=== PATIENT | female | born 1980 | race Caucasian/White ===

== ENCOUNTER 2023-06-06 08:54 | Emergency (ER) | payer BC, SELFPAY ==
--- NOTE | 2023-06-06 08:55 | ED.URI ---
HPI - URI/Sore Throat General Chief Complaint: Upper Respiratory Infection Stated Complaint: Sore Throat Time Seen by Provider: 06/06/23 08:54 Source: patient Mode of arrival: ambulatory Limitations: no limitations History of Present Illness HPI Narrative: Natalee is a 42-year-old female patient presenting to the clinic today with complaints of a sore throat, cough, and nasal congestion times 4-5 days. She reports no known fever or chills. MD elicited complaint: sore throat and nasal congestion Related Data Home Medications Medication Instructions Recorded Confirmed clobetasol 0.05 % scalp solution 1 applic topical DIRECTED 06/06/23 06/06/23 Allergies Allergy/AdvReac Type Severity Reaction Status Date / Time No Known Allergies Allergy Unverified 06/06/23 08:57 Review of Systems Review of Systems: Pertinent positives per HPI. Patient denies any fever, chills, rash, headache, visual changes, dizziness, shortness of breath, chest pain, palpitations, nausea, vomiting, diarrhea, constipation, abdominal pain, or any urinary issues. PMFSH Comments At the time of my signature, I reviewed and agree with the nursing past medical, surgical, social, and family history. There is no relevant family history pertinent to the patient complaint. Exam Narrative: General: Well-developed, well nourished, in no apparent distress Head: Normocephalic, atraumatic Eyes: Pupils equally round and reactive to light bilaterally, EOM intact, sclera and conjunctive clear, no discharge, lids normal Ears: TMs intact and clear, ear canals clear, no drainage, grossly hearing normal. Nose: Nares patent, clear nasal discharge, no inflammation, no sinus tenderness. Mouth: Oral pharynx red without lesions or masses, good dentition, MMM. Postnasal drip Neck: Supple, trachea midline, no enlargement of anterior or posterior cervical nodes, no thyroid masses or goiter palpable. Cardio: Regular rate and rhythm, s1 and s2 normal, no murmur appreciated. Resp: Clear to auscultation bilaterally, no rhonchi, rales, wheezing or rubs Course Course Emergency Course: Portions of this record may have been created with voice recognition software. Level of Care: Express Care Visit Vital Signs Vital signs: Vital Signs Temperature 36.1 C L 06/06/23 09:11 Pulse Rate 68 06/06/23 09:11 Respiratory Rate 18 06/06/23 09:11 Blood Pressure 109/83 06/06/23 09:11 Pulse Oximetry 99 06/06/23 09:11 Temperature 36.1 C L 06/06/23 09:11 Pulse Rate 68 06/06/23 09:11 Respiratory Rate 18 06/06/23 09:11 Blood Pressure 109/83 06/06/23 09:11 Pulse Oximetry 99 06/06/23 09:11 Vital signs reviewed MDM - URI/Sore Throat MDM Narrative Medical decision making narrative: At the time of visit patient is resting comfortably on the exam table. Patient appears to be nontoxic. Strep test was positive in the clinic today. COVID and influenza testing was negative. prescription for amoxicillin was sent to the pharmacy. Supportive measures were discussed with the patient and they voiced understanding discharge instructions and agrees to treatment plan. Return precautions reviewed Differential Diagnosis Differential diagnosis: Likely upper respiratory infection, otitis media, sinusitis, viral infection, bronchitis, influenza, pharyngitis and other (COVID) Lab Data Labs: Lab Results 06/06/23 Range/Units 09:15 POC SARS CoV-2 Ag Pending Strep Screen Positive Group A Strep *(Reference Range: Negative)* Discharge Plan Discharge Clinical Impression: Acute streptococcal pharyngitis Patient Disposition: Home, Self-Care Condition: Stable Instructions: Antibiotic Form, Strep Throat (ED) Additional Instructions: COVID and influenza testing was negative Strep test was positive in the clinic today. Change your toothbrush in 24 hours after initiation of
[2023-06-06 09:11] VITALS: BP 109/83; PULSE 68; RESP 18; TEMP 36.1; O2SAT 99
== END 2023-06-06 09:45 | disposition home or self-care (01) ==
PROVIDERS: Emergency Provider Nurse Practitioner Family
DX: J02.0 Streptococcal pharyngitis (principal); Z20.822 Contact with and (suspected) exposure to COVID-19
CPT/HCPCS: 87426; 87804; 87880; 99203; C9803; G0463

== ENCOUNTER 2024-02-16 20:38 | Emergency (ER) | payer BC, SELFPAY ==
--- NOTE | ~2024-02-16 | CT_ITS ---
EXAMINATION: CT abdomen pelvis wo con DATE: 02/17/2024 02:10 INDICATION: Periumbilical, suprapubic, and right lower quadrant abdominal pain. TECHNIQUE: Computed tomography (CT) of the abdomen and pelvis was performed without intravenous contr ast. Automated exposure control and iterative reconstruction technique were employed. The dose-length product was 681.87 mGy-cm. COMPARISON: CT abdomen and pelvis 06/07/2018 FINDINGS: The visualized portions of lung bases demonstrate mild atelectasis. No pleural effusion. Th e heart size is normal. No pericardial effusion. There are bilateral breast implants. The liver, gall bladder, spleen, pancreas, adrenal glands, and kidneys are normal. There is no urolithiasis. There ar e no dilated loops of bowel. The appendix is normal. There are no pathologically enlarged lymph nodes . There is no free intraperitoneal fluid. There is mild lumbar spondylosis. IMPRESSION: 1. No etiology for the patient's symptoms. Reviewed, dictated and finalized at location A.
[2024-02-16 21:05] VITALS: BP 137/90; PULSE 69; TEMP 36.3; O2SAT 100
[2024-02-16 23:45] LABS: Basophils Percent Auto 0.5 % (0.2-1.2); Eosinophils Absolute Auto 0.2 K/mm3 (0-0.3); Hematocrit 39.5 % (37.0-47.0); Hemoglobin 12.8 g/dL (12.0-15.0); Immature Granulocyte Absolute 0.02 K/mm3 (0.00-0.031); Immature Granulocyte Percent A 0.2 % (0-0.5); Lymphocytes Absolute Auto 1.65 K/mm3 (0.9-3.2); Lymphocytes Percent Auto 19.4 % (18.3-44.2); Mean Corpuscular HGB Conc 32.4 g/dl (32-36); Mean Corpuscular Hemoglobin 27.6 pg (26-34); Mean Corpuscular Volume 85.1 fl (80-100); Mean Platelet Volume 8.5 fl (7.4-10.4); Monocytes Absolute Auto 0.6 K/mm3 (0.1-0.6); Monocytes Percent Auto 6.7 % (2.6-8.5); Neutrophils Absolute Auto 6.1 K/mm3 (1.3-6.7); Neutrophils Percent Auto 71.2 % (45.5-73.1); Platelet Count Result 310 k/mm3 (150-375); Red Blood Count 4.64 M/mm3 (4.2-5.4); Red Cell Distribution Width 13.2 % (11.5-14.5); White Blood Count 8.5 K/mm3 (4.5-10.0)
[2024-02-16 23:50] VITALS: BP 137/87; PULSE 82; RESP 18; O2SAT 99
[2024-02-16 23:51] LABS: Add Urine Microscopic? NO; Appearance Urine Clear (Clear); Bilirubin Urine Negative (Negative); Blood Urine Negative (Negative); Color Urine Yellow (Yellow); Glucose Urine UA Negative (Negative); Ketones Urine Trace mg/dL (Negative); Leukocyte Esterase Ur Negative LEU/UL (Negative); Nitrate Urine Negative (Negative); Protein Urine Negative (Negative); Specific Grav Ur 1.023 (1.001-1.035)
[2024-02-16 23:52] LABS: Pregnancy On Board Control Positive; Urine Pregnancy Test Negative
[2024-02-16 23:55] LABS: Alanine Aminotransferase 25 U/L (6-35); Albumin Level 4.3 g/dL (3.5-5.1); Alkaline Phosphatase 67 U/L (38-126); Anion Gap 9 mmol/L (4-12); Aspartate Amino Transferase 23 U/L (14-36); Bilirubin,Total 0.3 mg/dL (0.2-1.3); Blood Urea Nitrogen 13 mg/dL (7-17); Carbon Dioxide 25 mmol/L (22-30); Chloride 101 mmol/L (98-107); Estimated CRCL calculation 97 ml/min; Estimated Glomerular Filt Rate > 60; Glucose 112 mg/dL (65-110); Lipase 50 U/L (23-300); Potassium 4.3 mmol/L (3.4-5.0); Sodium 135 mmol/L (137-145)
--- NOTE | 2024-02-17 00:36 | ED.ABDPAIN ---
HPI - Abdominal Pain General Chief Complaint: Abdominal Pain Stated Complaint: abd pain x 3 days Time Seen by Provider: 02/16/24 23:12 History of Present Illness HPI narrative: 43-year-old female presenting with abdominal pain. Patient states that for the last 3 days she has had abdominal pain associated with nausea all. States that she has not been vomiting but she has not been eating much. She had diarrhea for couple of days which has since resolved. States that the pain originally was in the periumbilical region and now it is in the suprapubic right lower quadrant region. No fevers. No dysuria or hematuria. No flank pain. No further complaints. Related Data Home Medications Medication Instructions Recorded Confirmed clobetasol 0.05 % scalp solution 1 applic topical DIRECTED 06/06/23 06/06/23 Allergies Allergy/AdvReac Type Severity Reaction Status Date / Time No Known Allergies Allergy Unverified 06/06/23 08:57 Review of Systems Review of Systems: All systems reviewed & are unremarkable except as noted in HPI and below Exam Narrative: GENERAL: Well-appearing, in no acute distress, pleasant cooperative HEAD: Normocephalic, atraumatic. EYES: PERRLA and EOMI. ENT: Mucous membranes moist. NECK: Supple. CHEST: Clear to auscultation. No respiratory distress. HEART: Regular rate and rhythm ABDOMEN: Soft, + tender in suprapubic and right lower quadrant regions, no guarding or rebound EXTREMITIES: Normal range of motion SKIN: Warm, dry, no rash. NEURO: No focal deficits. Alert and oriented x3. PSYCH: Normal mood and affect. Course Vital Signs Vital signs: Vital Signs Temperature 97.4 F L 02/16/24 21:05 Pulse Rate 69 02/16/24 21:05 Blood Pressure 137/90 02/16/24 21:05 Pulse Oximetry 100 02/16/24 21:05 Temperature 97.4 F L 02/16/24 21:05 Pulse Rate 82 02/16/24 23:50 Respiratory Rate 18 02/16/24 23:50 Blood Pressure 137/87 02/16/24 23:50 Pulse Oximetry 99 02/16/24 23:50 MDM - Abdominal Pain MDM Narrative Medical decision making narrative: 43-year-old female presenting with abdominal pain for several days. Vitals stable. Exam remarkable for the above. Blood work is unremarkable. No leukocytosis. Normal LFTs. UA is unremarkable. Patient went for CT abdomen pelvis with contrast, the contrast extravasated but RT was able to obtain a noncontrast CT. Patient now stating that she wants to leave, she does not want to stay here, she wants the IV out immediately. Discussed the risks of leaving against medical advice prior to the completion of her workup and she is able to voice understanding of these risks. She is alert, oriented, and has decision making capacity. Appropriate return precautions given. Patient left against medical advice pending completion of her workup. Differential Diagnosis Differential diagnosis: Likely abdominal pain, acute appendicitis, constipation, diverticulitis, pancreatitis and small bowel obstruction Medical Records Attestation: I reviewed the patient's medical records. Lab Data Attestation: I reviewed the patient's lab results. 02/16/24 23:40 02/16/24 23:40 Labs: Lab Results 02/16/24 02/16/24 Range/Units 23:40 23:45 WBC 8.5 (4.5-10.0) K/mm3 RBC 4.64 (4.2-5.4) M/mm3 Hgb 12.8 (12.0-15.0) g/dL Hct 39.5 (37.0-47.0) % MCV 85.1 (80-100) fl MCH 27.6 (26-34) pg MCHC 32.4 (32-36) g/dl RDW 13.2 (11.5-14.5) % Plt Count 310 (150-375) k/mm3 MPV 8.5 (7.4-10.4) fl Immature Gran % (Auto) 0.2 (0-0.5) % Neut % (Auto) 71.2 (45.5-73.1) % Lymph % (Auto) 19.4 (18.3-44.2) % Johnson % (Auto) 6.7 (2.6-8.5) % Eos % (Auto) 2.0 (0-4.4) % Baso % (Auto) 0.5 (0.2-1.2) % Lymph # (Auto) 1.65 (0.9-3.2) K/mm3 Johnson # (Auto) 0.6 (0.1-0.6) K/mm3 Eos # (Auto) 0.2 (0-0.3) K/mm3 Baso # (Auto) 0.0 (0.0-0.1) K/mm3 Abs Immat Gran (auto) 0.02 (0.00-0.031) K/mm3
[2024-02-17] MEDS: SODIUM CHLORIDE 0.9% IV 1,000 ML 999 ML IV CONT (00:48)
[2024-02-17] MEDS: ONDANSETRON INJ 4 MG/2 ML VIAL IV PUSH (00:48)
[2024-02-17] MEDS: KETOROLAC 15 MG/ML VIAL (*BKC) IV PUSH (00:49)
--- NOTE | 2024-02-17 02:17 | PC.NURSE ---
Pt returned from CT with contrast on shirt. States that we are incompetent and I am not paying for this bill. You have me in a room with someone who has pneumonia and won't turn off the lights. They are blaring the TV in there and I shouldn't be in a room with someone with pneumonia anyway. Apologized to pt for her experience and offered paper scrub top. Explained to pt that there are no other rooms at this time for her to be in as they are all full. Pt offered chair in the [facility] for the moment, but explained to her that her visitors would need to go to the waiting room because I could not have them all in the [facility]. Pt verbalized understanding but states that she only wants to speak with the physician before she leaves. Pt spoke with Dr Perez and then signed AMA form.
--- NOTE | 2024-02-17 02:17 | PC.NURSE ---
0200: Pt arrived back from Ct scan with poultry service technician. Pt appeared to have the iV contrast all over her shirt stating Ct scan doesnt know what they are doing, I told them it was leaking and they just let it leak all over me . I am not going back in my room. I should not have to share room with them, I asked for them to be quiet. I asked for the lights to be turned off . (This RN told pt rooms 4 and 5 are connected and pts will have to come to a decision together. This RN checked with other room and they stated they wanted their light off so Rn spoke with pt and stated they will have to find a happy medium.) Pt refused to go back into room. Pt stated I just want to go home and want to sign out AMA . Pt was given a chair to sit outside the room while family was escorted out to waiting room. Prior to family leaving the ED, they stated It is cold outside and her shirt is all wet . brokerage clerk Ana offered pt scrub top to wear home. Pt declined offer. Dr. Perez went over with blood resuts but stated CT scan results wont be resulted for another couple hours. Pt states i am not paying for that CT scan, they messed it up, I shouldn't have to pay . byproduct engineer gave pt naomy contact from registration to pt to call on Monday. Dr. Perez continued with AMA topic and told pt complication of not staying. Pt states I know mt risks of staying here as well, I just want to go home . Pt signed out AMA.
== END 2024-02-17 02:31 | disposition left against medical advice (07) ==
PROVIDERS: Emergency Provider Emergency Medicine
DX: R10.9 Unspecified abdominal pain (principal)
CPT/HCPCS: 36415; 74176; 80053; 81003; 81025; 83690; 85025; 96361; 96374; 96375; 99284; J1885; J2405; J7030